=== PATIENT | female | born 2000 | race Caucasian/White ===

== ENCOUNTER 2025-10-22 10:11 | Outpatient (OUT) | payer BC, SELFPAY ==
--- OUTSIDE RECORDS SUMMARY | 2025-10-11 13:15 | XMS_ITS | Encounter Summary ---
Author Organization [facility] Address [address] [place] [address] Care Team Providers Care Hydrographic Engineer Name Role Phone Unavailable Primary Care Provider Unavailabl e Encounter Details DateTypeDepartmentCare Team (Latest Contact Info)Ibnbfetvzpd36/18/2025 1:15 PM [facility]outine [facility] [address] [place] [address] Marsha Marks, CNM [address] [place] [address] Encounter for care of first , third trimester ([facility]) (Primary Dx); Large for dates ([facility]) Social History Tobacco UseTypesPacks/DayYears UsedDateSmoking Tobacco: NeverSmokeless Tobacco: NeverAlcohol UseStandard Drinks/WeekCommentsNot Currently0 (1 standard drink = 0.6 oz pure alcohol)Estimated Date of TjjhnsjtDxydszguAiv72/28/2025Based on last menstrual period of 01/14/2025 (Exact Date)Sex and Gender Information ValueDate RecordedSex Assigned at BirthNot on fileLegal KotNwqsll53/06/2025 4:57 PM EDTGender IdentityNot on fileSexual OrientationNot on filedocumented as of this encounter Last Filed Vital Signs Vital SignReadingTime TakenCommentsBlood Qsevhckf659/80112/12/2024 1:32 PM EST Pulse--Temperature--Respiratory Rate--Oxygen Saturation--Inhaled Oxygen Concentration--Qfisvr581 kg (250 lb)10/11/2025 1:32 PM ESTHeight--Body Mass Index44.29003/16/2025 9:20 AM EDTdocumented in this encounter Progress Notes * Marsha Marks CNM - 10/11/2025 1:15 PM EST Subjective No chief complaint on file. Melissa Johnson is a 25 y.o. at 38w4d with a working estimated date of delivery of 10/21/2025, by Last Menstrual Period who presents for a routine visit. She denies vaginal bleeding, leakage of fluid, decreased movements, or contractions. OB History Para Term AB Living 1 SAB IAB Ectopic Multiple Live Births # Outcome Date GA Lbr Francisco/2nd Weight Sex Type Anes PTL Lv 1 Current Her is complicated by: MTHFER gene mutation Objective Physical Exam Weight: 250 lb Expected Total Weight Gain: 11 lb-19 lb Pregravid BMI: 38.27 BP: 122/80 Urine protein-negative Urine glucose-negative Assessment/Plan Diagnoses and all orders for this visit: Encounter for care of first , third trimester ([facility]) Large for dates ([facility]) - US OB follow up transabdominal approach; Future Continue vitamin. Labs reviewed. GBS negative Expected mode of delivery Follow up in 1 week for a routine visit. documented in this encounter Plan of Treatment DateTypeDepartmentCare Team (Latest Contact Info)Dxazazadlci69/29/2025 4:45 PM ESTAncillary Procedure [facility] [address] [facility] [address] [place] [address] 10/22/2025 6:30 PM ESTRoutine [facility] [address] [place] [address] Marsha Marks CNM [address] [place] [address] documented as of this encounter Results * US OB follow up transabdominal approach (10/11/2025 3:58 PM EST)Anatomical RegionLateralityModalityBodyUltrasoundSpecimen (Source)Anatomical Location / LateralityCollection Method / VolumeCollection TimeReceived Time10/13/2025 3:26 PM EST Impressions 10/15/2025 11:03 AM EST 1. Single, live intrauterine , current sonographic age of 38 weeks and 5 days, with an estimated date of delivery of October 20, 2025 2. Comparison made with prior examination August 13, 2025 had a weight percentile of 29.5% and delivery date of October 23, 2025. * ??Estimated Weight (g) by Percentile is based upon an accurate estimated age based onlast menstrual period. ?? TRANSCRIBED BY: ? ELECTRONICALLY SIGNED BY: Lopez Diaz MD Narrative 10/15/2025 11:03 AM EST FINDINGS: A single, live intrauterine is present with normal cardiac rate of 149 ??beats per minute. Normal activity and amniotic fluid volume of 13. ??Morphology is grossly normal. The cervix is long and closed,5.8 cm. ??The placenta is anterior, Grade 2 not associated with the cervical os. ??The current sonographic age is 38 weeks and 5 days, based on the following measurements: ?BPD ? 9.3 cm (38 weeks, 0 days) ?Head Circumference ?33.6cm (38 weeks, 4days) ?Abdominal Circumference ?35.7cm (39 weeks, 5 days) ?Femur Length ?7.5cm (38 weeks,4 ??days) ?Presentation ? Cephalic ?Placenta ? Anterior ? Weight (g) by Percentile ??76.1 % * These measurements result in an estimated date of delivery of ??October 20, 2025. ?? The current estimated weight is ??3666 ??grams ( 8 pound,1 ??ounces). ?? Procedure Note Lopez Diaz MD - 10/15/2025 FINDINGS: A single, live intrauterine is present with normal cardiacrate of 149 beats per minute. Normal activity and amniotic fluidvolume of 13. Morphology is grossly normal. The cervix is long andclosed,5.8 cm. The placenta is anterior, Grade 2 not associated with thecervical os. The current sonographic age is 38 weeks and 5 days, based onthe following measurements: BPD 9.3 cm (38 weeks, 0 days) Head Circumference 33.6cm (38 weeks, 4days) Abdominal Circumference 35.7cm (39 weeks, 5 days) Femur Length 7.5cm (38 weeks,4 days) Presentation Cephalic Placenta Anterior Weight (g) by Percentile 76.1 % * These measurements result in an estimated date of delivery of 2024. The current estimated weight is 3666 grams ( 8 pound,1ounces). IMPRESSION: 1. Single, live intrauterine , current sonographic age of 38weeks and 5 days, with an estimated date of delivery of September 2. Comparison made with prior examination August 13, 2025 had a fetalweight percentile of 29.5% and delivery date of October 23, 2025. * Estimated Weight (g) by Percentile is based upon an accurateestimated age based on last menstrual period. TRANSCRIBED BY: ELECTRONICALLY SIGNED BY: Lopez Diaz MD Authorizing ProviderResult TypeResult StatusValerilonny Rosen [facility] US PROCEDURESFinal Result documented in this encounter Visit Diagnoses Diagnosis Encounter for care of first , third trimester ([facility])- Primary Large for dates ([facility]) Large for dates ([facility]) documented in this encounter
--- OUTSIDE RECORDS SUMMARY | 2025-10-11 15:30 | XMS_ITS | Encounter Summary ---
Author Organization [facility] Address [address] [place] [address] Care Team Providers Care Supervisor Cytogenetic Laboratory Name Role Phone Unavailable Primary Care Provider Unavailabl e Encounter Details DateTypeDepartmentCare Team (Latest Contact Info)Astkhwirxhs31/18/2025 3:30 PM ESTAncillary Procedure [facility] [address] [facility] [address] [place] [address] Large for dates ([facility]) Social History Tobacco UseTypesPacks/DayYears UsedDateSmoking Tobacco: NeverSmokeless Tobacco: NeverAlcohol UseStandard Drinks/WeekCommentsNot Currently0 (1 standard drink = 0.6 oz pure alcohol)Estimated Date of NtvhbjtsKmnjzehtZrp67/28/2025Based on last menstrual period of 01/14/2025 (Exact Date)Sex and Gender Information ValueDate RecordedSex Assigned at BirthNot on fileLegal AtrApnixa58/06/2025 4:57 PM EDTGender IdentityNot on fileSexual OrientationNot on filedocumented as of this encounter Plan of Treatment DateTypeDepartmentCare Team (Latest Contact Info)Sfgtetnnymn42/29/2025 4:45 PM ESTAncillary Procedure [facility] [address] [facility] [address] [place] [address] 10/22/2025 6:30 PM ESTRoutine [facility] [address] [place] [address] Marsha Marks, CNM [address] [place], [place] [id number] documented as of this encounter Procedures Procedure NamePriorityDate/TimeAssociated DiagnosisCommentsUS OB FOLLOW UP TRANSABDOMINAL FGZNLKRYVbxhlku44/18/2025 3:58 PM EST Large for dates ([facility]) documented in this encounter Results * OB follow up transabdominal approach (10/11/2025 3:58 [...] BY: Lopez Diaz MD Authorizing ProviderResult TypeResult StatusValesabino Marks [facility] US PROCEDURESFinal Result documented in this encounter Visit Diagnoses Diagnosis Large for dates ([facility]) documented in this encounter
--- OUTSIDE RECORDS SUMMARY | 2025-10-17 11:15 | XMS_ITS | Encounter Summary ---
Author Organization [facility] Address [address] [place] [address] Care Team Providers Care Revenue Specialist Name Role Phone Unavailable Primary Care Provider Unavailabl e Encounter Details DateTypeDepartmentCare Team (Latest Contact Info)Kiqcsrlwwum40/24/2025 11:15 AM ESTRoutine [facility] [address] [place] [address] Marsha Marks, CNM [address] [place], [place] [id number] Social History Tobacco UseTypesPacks/DayYears UsedDateSmoking Tobacco: NeverSmokeless Tobacco: NeverAlcohol UseStandard Drinks/WeekCommentsNot Currently0 (1 standard drink = 0.6 oz pure alcohol)Estimated Date of UwtqmjjtIwlpvuhgXzu78/28/2025Based on last menstrual period of 01/14/2025 (Exact Date)Sex and Gender Information ValueDate RecordedSex Assigned at BirthNot on fileLegal HjkBodnrq74/06/2025 4:57 PM EDTGender IdentityNot on fileSexual OrientationNot on filedocumented as of this encounter Last Filed Vital Signs Vital SignReadingTime TakenCommentsBlood Hjbhnczw815/80112/18/2024 11:32 AM EST Pulse--Temperature--Respiratory Rate--Oxygen Saturation--Inhaled Oxygen Concentration--Ghrhzt131 kg (253 lb)10/17/2025 11:32 AM ESTHeight--Body Mass Index44.8203/16/2025 9:20 AM EDTdocumented in this encounter Plan of Treatment DateTypeDepartmentCare Team (Latest Contact Info)Tmhnlnufblv54/29/2025 4:45 PM ESTAncillary Procedure [facility] [address] [place] [address] 10/22/2025 6:30 PM ESTRoutine [facility] [address] [place] [address] Marsha Marks, KESHIA [address] [place] [address] documented as of this encounter Visit Diagnoses Not on filedocumented in this encounter
--- OUTSIDE RECORDS SUMMARY | 2025-10-22 10:18 | XMS_ITS | Encounter Summary ---
Author Organization [facility] Address [address] [place] [address] Care Team Providers Care Animal Control Supervisor Name Role Phone Unavailable Primary Care Provider Unavailabl e Encounter Details DateTypeDepartmentCare Team (Latest Contact Info)Zghjccikfiq78/18/2025Travel Social History Tobacco UseTypesPacks/DayYears UsedDateSmoking Tobacco: NeverSmokeless Tobacco: NeverAlcohol UseStandard Drinks/WeekCommentsNot Currently0 (1 standard drink = 0.6 oz pure alcohol)Estimated Date of IsehpzweLklmffrzRuk20/28/2025Based on last menstrual period of 01/14/2025 (Exact Date)Sex and Gender Information ValueDate RecordedSex Assigned at BirthNot on fileLegal BhzHeurhg96/06/2025 4:57 PM EDTGender IdentityNot on fileSexual OrientationNot on filedocumented as of this encounter Plan of Treatment DateTypeDepartmentCare Team (Latest Contact Info)Fvffbyblcej92/29/2025 4:45 PM ESTAncillary Procedure [facility] [address] [facility] [address] [place] [address] 10/22/2025 6:30 PM ESTRoutine [facility] [address] [place] [address] Marsha Marks, CNM [address] [place], [place] [id number] documented as of this encounter Visit Diagnoses Not on filedocumented in this encounter
--- OUTSIDE RECORDS SUMMARY | 2025-10-22 10:18 | XMS_ITS | Clinical Summary ---
Author Organization [facility] Address [address] [id number] Care Team Providers Care Fiber Optics Engineer Name Role Phone Unavailable Primary Care Provider Unavailabl e Social History Tobacco UseTypesPacks/DayYears UsedDateSmoking Tobacco: Never Assessed CommentsUnknownSex and Gender InformationValueDate RecordedSex Assigned at Not on fileLegal CyoEupuxq07/11/2020 9:26 AM ESTGender IdentityNot on fileSexual OrientationNot on file Plan of Treatment Not on file Insurance
--- OUTSIDE RECORDS SUMMARY | 2025-10-22 10:18 | XMS_ITS | Encounter Summary ---
Author Organization [facility] Address [address] [place] [address] Care Team Providers Care Carbon Brusher Assembler Name Role Phone Unavailable Primary Care Provider Unavailabl e Encounter Details DateTypeDepartmentCare Team (Latest Contact Info)Vojchadjjbl99/18/2025amboo flowsheet [facility] GONZALEZ [address] [place] [address] Marsha Marks CNM [address] [place] [address] Social History Tobacco UseTypesPacks/DayYears UsedDateSmoking Tobacco: NeverSmokeless Tobacco: NeverAlcohol UseStandard Drinks/WeekCommentsNot Currently0 (1 standard drink = 0.6 oz pure alcohol)Estimated Date of EgovuqbnNrdwphvvTfn11/28/2025Based on last menstrual period of 01/14/2025 (Exact Date)Sex and Gender Information ValueDate RecordedSex Assigned at BirthNot on fileLegal UvmDvcmdj87/06/2025 4:57 PM EDTGender IdentityNot on fileSexual OrientationNot on filedocumented as of this encounter Plan of Treatment DateTypeDepartmentCare Team (Latest Contact Info)Neiemvfgdaq16/29/2025 4:45 PM ESTAncillary Procedure [facility] [address] [address] 10/22/2025 6:30 PM ESTRoutine [facility] [address] [place] [address] Marsha Marks CNM [address] [facility] [place] [address] documented as of this encounter Visit Diagnoses Not on filedocumented in this encounter
--- OUTSIDE RECORDS SUMMARY | 2025-10-22 10:18 | XMS_ITS | Encounter Summary ---
Author Organization [facility] Address [address] [place] [address] Care Team Providers Care Coding Quality Coordinator Name Role Phone Unavailable Primary Care Provider Unavailabl e Encounter Details DateTypeDepartmentCare Team (Latest Contact Info)Hjhaaysvdhg72/26/2025Orders Only MAYDA GONZALEZ [address] [place] [address] Marsha Marks CNM [address] [place] [address] related condition in third trimester ([facility]) Social History Tobacco UseTypesPacks/DayYears UsedDateSmoking Tobacco: NeverSmokeless Tobacco: NeverAlcohol UseStandard Drinks/WeekCommentsNot Currently0 (1 standard drink = 0.6 oz pure alcohol)Estimated Date of GayxuiooAdipmwluQzm11/28/2025Based on last menstrual period of 01/14/2025 (Exact Date)Sex and Gender Information ValueDate RecordedSex Assigned at BirthNot on fileLegal HlyKhxptg86/06/2025 4:57 PM EDTGender IdentityNot on fileSexual OrientationNot on filedocumented as of this encounter Plan of Treatment DateTypeDepartmentCare Team (Latest Contact Info)Wbyxvgjoslx06/29/2025 4:45 PM ESTAncillary Procedure [facility] [address] [address] 10/22/2025 6:30 PM ESTRoutine [facility] [address] [place] [address] Marsha Marks CNM [address] [place] [address] NameTypePriorityAssociated DiagnosesOrder ScheduleUS OB follow up transabdominal approachImagingRoutine related condition in third trimester ([facility]) Expected: 10/19/2025, Expires: 10/19/2026documented as of this encounter Visit Diagnoses Diagnosis related condition in third trimester ([facility]) documented in this encounter
--- OUTSIDE RECORDS SUMMARY | 2025-10-22 10:19 | XMS_ITS | Clinical Summary ---
Author Organization [facility] Address [address] [place] [address] Care Team Providers Care Mechanical Engineering Professor Name Role Phone Unavailable Primary Care Provider Unavailabl e Allergies No known active allergies Medications MedicationSigDispense QuantityRefillsLast FilledStart DateEnd DateStatus albuterol (PROVENTIL HFA;VENTOLIN HFA) 90 mcg/actuation inhaler Inhale 2 puffs into the lungs every 6 (six) hours as needed.Active TRI-SPRINTEC, 28, 0.18/0.215/0.25 mg-35 mcg (28) tablet 08/03/2019Active Family History Medical HistoryRelationCommentsNo Known ProblemsFatherHypothyroidismMother RelationStatusCommentsFatherAliveMotherAlive Social History Tobacco UseTypesPacks/DayYears UsedDateSmoking Tobacco: NeverSmokeless Tobacco: NeverAlcohol UseStandard Drinks/WeekCommentsYes0 (1 standard drink = 0.6 oz pure alcohol)CommentsUnknownSex and Gender InformationValueDate RecordedSex Assigned at BirthNot on fileLegal UqaHzpjjr90/16/2019 12:49 PM EDTGender IdentityNot on fileSexual OrientationNot on file Last Filed Vital Signs Vital SignReadingTime TakenCommentsBlood Frwnqjrx114/8111 4:39 PM EST Uyjan6404 4:39 PM VVFKkumhzfennq94.8 ??C (98.2 ??F)08/31/2019 4:39 PM ESTRespiratory Gzwo642110/31/2018 4:39 PM ESTOxygen Ifmswsenke22%08/31/2019 4:39 PM ESTInhaled Oxygen Concentration--Yupbsg78.5 kg (184 lb)08/31/2019 4:39 PM EST Txyxhe755.6 cm (5' 4 )08/31/2019 4:39 PM ESTBody Mass Index31.5808/31/2019 4:39 PM EST Plan of Treatment Health MaintenanceDue DateLast DoneCommentsHepatitis B Vaccines (1 of 3 - 19+ 3- dose series)2017Pap Smear09/30/20192683Tjujfai-Icsoayueek-Hpykapvto Vaccines (7 - Td or Tdap), 05/16/2003, 05/28/2000, Additional history existsInfluenza Vaccine(s) (#1)06/25/2025Shingles Vaccine (Non-Medicare; Age 50+ or All Ages Risk Series) (1 of 2)2048RSV for patients and patients 60yrs or older (1 - 1-dose 75+ series)2073Hib VaccinesCompleted 11/13/1999, 04/07/1999, 02/14/1999, Additional history existsMeningococcal (MCV4) VaccinesAged OutNo longer eligible based on patient's age to complete this topicPneumococcal Vaccine (Pediatric Routine or All Ages Risk Series)Aged OutNo longer eligible based on patient's age to complete this topic Insurance
--- OUTSIDE RECORDS SUMMARY | 2025-10-22 10:19 | XMS_ITS | Encounter Summary ---
Author Organization [facility] Address [address] [place] [address] Care Team Providers Care Men'S And Boys' Clothing Salesperson Name Role Phone Unavailable Primary Care Provider Unavailabl e Encounter Details DateTypeDepartmentCare Team (Latest Contact Info)Mbvyrqtucfe38/24/2025amboo flowsheet MAYDA GONZALEZ [address] [place] [address] Marsha Marks CNM [address] [place] [address] Social History Tobacco UseTypesPacks/DayYears UsedDateSmoking Tobacco: NeverSmokeless Tobacco: NeverAlcohol UseStandard Drinks/WeekCommentsNot Currently0 (1 standard drink = 0.6 oz pure alcohol)Estimated Date of VoyywznbSkpwzyjoAod04/28/2025Based on last menstrual period of 01/14/2025 (Exact Date)Sex and Gender Information ValueDate RecordedSex Assigned at BirthNot on fileLegal VelLxucnj91/06/2025 4:57 PM EDTGender IdentityNot on fileSexual OrientationNot on filedocumented as of this encounter Plan of Treatment DateTypeDepartmentCare Team (Latest Contact Info)Lxnpxcqhwsq76/29/2025 4:45 PM ESTAncillary Procedure [facility] [address] [address] 10/22/2025 6:30 PM ESTRoutine [facility] [address] [place] [address] Marsha Marks CNM [address] [place] [address] documented as of this encounter Visit Diagnoses Not on filedocumented in this encounter
--- OUTSIDE RECORDS SUMMARY | 2025-10-22 10:19 | XMS_ITS | Clinical Summary ---
Author Organization [facility] Healthcare Address [address] [place] [address] Care Team Providers Care Marketing Communications Coordinator Name Role Phone Unavailable Primary Care Provider Unavailabl e Allergies No known active allergies Medications MedicationSigDispense QuantityRefillsLast FilledStart DateEnd DateStatus multivitamin () 27-0.8 MG tablet Indications: examination or test, positive result ([facility])Take 1 tablet by mouth Daily 30 tablet 1105Active magnesium oxide (Mag-Ox) 400 mg tablet 400 mg DailyActive ferrous sulfate (Fe Tabs) 325 (65 Fe) MG EC tablet Indications:Anemia during in third trimester ([facility])Take 1 tablet (325 mg) by mouth in the morning and 1 tablet (325 mg) before bedtime. Do not crush, chew, or split. 60 tablet [id number] Encounters DateTypeDepartmentCare OpwwAlasmxbrjdz47/26/2025Orders Only MAYDA GONZALEZ [address] [place] [address] Marsha Marks CNM related condition in third trimester ([facility])10/17/2025 11:15 AM EST Routine MAYDA GONZALEZ [address] [place] [address] Marsha Marks CNM 10/17/2025amboo flowsheet MAYDA GONZALEZ [address] [place] [address] Marsha Marks CNM 10/11/2025 3:30 PM ESTAncillary Procedure [facility] [address] [place] [address] Large for dates ([facility])10/11/2025 1:15 PM ESTRoutine [facility] [address] [place] [address] Marsha Marks CNM Encounter for care of first , third trimester ([facility]) (Primary Dx); Large for dates ([facility])10/11/2025[facility] flowsheet [facility] [address] [facility] [phone] Marsha Marks CNM 10/11/20259314Cumerv97/11/2025 4:45 PM ESTRoutine [facility] [address] [facility] [phone] Marsha Marks CNM Encounter for care of first , third trimester ([facility]) (Primary Dx)10/04/2025[facility] flowsheet [facility] [address] [facility] [phone] Marsha Marks CNM 10/03/2025Results Follow-Up [facility] [address] [facility] [phone] Antionette Lindquist MA STREPTOCCOUS, GROUP B HGLYPHY6809/26/2025 4:15 PM ESTRoutine [facility] [address] [facility] [address] Marsha Marks CNM screening for streptococcus B ([facility])09/26/2025[facility] flowsheet [facility] [address] [place] [address] Marsha Marks CNM 09/12/2025Telephone [facility] [address] [place] [phone] Marsha Marks CNM 09/03/2025 5:30 PM ESTRoutine MAYDA RODASGYN [address] [place] [phone] Marsha Marks CNM Encounter for care of first , third trimester ([facility]) (Primary Dx)09/03/2025amboo flowsheet [facility] [address] [place] [phone] Marsha Marks CNM 09/03/20250311Iaxnun50/31/2025Results Follow-Up MAYDA RODASGYN [address] [place] [phone] Antionette Lindquist MA CBC, GLUCOSE, GESTATIONAL SCREEN (50G)-135 ZDIQMP0408/13/2025 5:30 PM EDTAncillary Procedure [facility] [address] [address] related condition in third trimester ([facility])08/13/2025Orders Only [facility] [address] [place] [phone] Marsha Marks CNM Anemia during in third trimester ([facility]) (Primary Dx)08/13/2025 Myilpk6308/09/2025 9:30 AM EDTRoutine [facility] [address] [place] [phone] Marsha Marks CNM Screening for iron deficiency anemia; Screening for diabetes mellitus (DM); related condition in third trimester ([facility])08/09/2025amboo flowsheet [facility] [address] [place] [phone] Marsha Marks CNM 08/03/2025Orders Only [facility] [address] [place] [phone] Marsha Marks CNM Screening for diabetes mellitus (DM); Screening for iron deficiency anemiafrom Last 3 Months Family History Medical HistoryRelationNameCommentsHashimoto's thyroiditisMotherRelationName StatusCommentsFatherAliveMotherAlive Social History Tobacco UseTypesPacks/DayYears UsedDateSmoking Tobacco: NeverSmokeless Tobacco: Never Tobacco Cessation:Counseling Given: Not Answered Alcohol UseStandard Drinks/WeekCommentsNot Currently0 (1 standard drink = 0.6 oz pure alcohol)Estimated Date of AndabprmEkmdybivFpb07/28/2025Based on last menstrual period of 01/14/2025 (Exact Date)Sex and Gender InformationValue Date RecordedSex Assigned at BirthNot on fileLegal JorXkdxms29/06/2025 4:57 PM EDTGender IdentityNot on fileSexual OrientationNot on file Last Filed Vital Signs Vital SignReadingTime TakenCommentsBlood Uuldajug183/80112/18/2024 11:32 AM EST Pulse--Temperature--Respiratory Rate--Oxygen Saturation--Inhaled Oxygen Concentration--Jiedlk127 kg (253 lb)10/17/2025 11:32 AM HPZEzocpt096 cm (5' 3 ) 03/16/2025 9:20 AM EDTBody Mass Index44.8203/16/2025 9:20 AM EDT Plan of Treatment DateTypeDepartmentCare Team (Latest Contact Info)Yqlcjoypgzw10/29/2025 4:45 PM ESTAncillary Procedure [facility] [address] [address] 10/22/2025 6:30 PM ESTRoutine [facility] [address] [place] [address] Marsha Marks CNM [address] [place] [address] Health MaintenanceDue DateLast DoneCommentsInfluenza Vaccine (#1)06/25/2025 09/04/2005Pneumococcal Vaccine: Pediatrics (0 to 5 Years) and At-Risk Patients (6 to 64 Years)Aged OutNo longer eligible based on patient's age to complete this topic Procedures Procedure NamePriorityDate/TimeAssociated DiagnosisCommentsUS OB FOLLOW UP TRANSABDOMINAL MIDGDCRWNatnwng94/18/2025 3:58 PM EST Large for dates ([facility]) STREPTOCCOUS, GROUP B QQGZRCYWlsdktj25/04/2025 8:17 AM EST screening for streptococcus B ([facility]) US OB FOLLOW UP TRANSABDOMINAL OKTDOLBPNruacpt87/20/2025 5:51 PM EDT related condition in third trimester ([facility]) GLUCOSE, GESTATIONAL SCREEN (50G)-135 ITOGAOCamzgem91/16/2025 9:55 AM EDT Screening for diabetes mellitus (DM) KSYZlbanki21/16/2025 9:55 AM EDT Screening for iron deficiency anemia from Last 3 Months Results * US OB follow up transabdominal approach (10/11/2025 3:58 PM EST) Only the most recent of2 resultswithin the time period is included. Anatomical RegionLateralityModalityBodyUltrasoundSpecimen (Source)Anatomical Location / LateralityCollection Method / VolumeCollection TimeReceived Time 10/13/2025 3:26 PM EST Impressions 10/15/2025 11:03 AM [...] BY: Lopez Diaz MD Authorizing ProviderResult TypeResult StatusMarsha PENAMIMG OB US PROCEDURESFinal Result * STREPTOCCOUS, GROUP B CULTURE (09/27/2025 8:17 AM EST)ComponentValueRef Range Test MethodAnalysis TimePerformed AtPathologist SignatureMICRO [id number] QUESTSPECIMEN QUALITYAdequateQUESTSOURCEVAGINAL/ANORECTALQUESTSTATUSFINALQUEST RESULTSEE NOTEQUESTComment: No group B Streptococcus isolated COMMENTSEE NOTEQUESTComment: Note per CDC guidelines optimal recovery is achieved by swabbing both the lower vagina and rectum (through the anal sphincter). Specimen (Source)Anatomical Location / LateralityCollection Method / Volume Collection TimeReceived Time09/27/2025 8:17 AM EST09/27/2025 8:18 AM EST Narrative Resulting Agency Comment Performing Organization Information ?Site ID: QPT ?Name: [facility] [address] ?Address: [address] [place] [phone] ?Director: Leeroy Nash MD Authorizing ProviderResult TypeResult Delphine Marks CNMLAB BODY FLUIDS AND STOOLS ORDERABLESFinal ResultPerforming OrganizationAddressCity/State/ZIP CodePhone Number [facility] * GLUCOSE, GESTATIONAL SCREEN (50G)-135 CUTOFF (08/09/2025 9:55 AM EDT)Component ValueRef RangeTest MethodAnalysis TimePerformed AtPathologist Signature GLUCOSE, GESTATIONAL SCREEN (50G)-135 PJATVW128<135 mg/dLQUESTSpecimen (Source)Anatomical Location / LateralityCollection Method / VolumeCollection TimeReceived Time08/09/2025 9:55 AM EDT1 9:55 AM EDT Narrative Resulting Agency Comment Performing Organization Information ?Site ID: QPT ?Name: [facility] [address] ?Address: [facility] [address] [place] [address] ?Director: Leeroy Nash MD Authorizing ProviderResult TypeResult StatusMarsha Marks CNMLAB BLOOD ORDERABLESFinal ResultPerforming OrganizationAddressCity/State/ZIP CodePhone Number [facility] * (ABNORMAL) CBC (08/09/2025 9:55 AM EDT)ComponentValueRef RangeTest Method Analysis TimePerformed AtPathologist SignatureWHITE BLOOD CELL COUNT8.93.8 - 10.8 Thousand/uLQUESTRED BLOOD CELL COUNT3.79(L)3.80 - 5.10 Million/uLQUEST GZKVIHRSNM39.7(L)11.7 - 15.5 g/pIOIDUJPXBENICUWU80.8(L)35.0 - 45.0 %QUESTMCV 89.280.0 - 100.0 qWUUSNYLYJ46.227.0 - 33.0 uwUBLZZTSVH07.7(L)32.0 - 36.0 g/dL QUESTComment: For adults, a slight decrease in the calculated MCHC value (in the range of 30 to 32 g/dL) is most likely not clinically significant; however, it should be interpreted with caution in correlation with other red cell parameters and the patient's clinical condition. RDW13.311.0 - 15.0 %QUESTPLATELET NNDSY593288 - 400 Thousand/bULDTLRYPB10.47.5 - 12.5 fLQUESTSpecimen (Source)Anatomical Location / LateralityCollection Method / VolumeCollection TimeReceived TimeBloodVenous blood specimen / Jdzclzi1208/09/2025 9:55 AM EDT1 9:55 AM EDT Narrative Resulting Agency Comment Performing Organization Information ?Site ID: QPT ?Name: [facility] [address] ?Address: [facility] , [address] [place] [phone] ?Director: Leeroy Nash MD Authorizing ProviderResult TypeResult StatusValerilonny Marks CNMLAB BLOOD ORDERABLESFinal ResultPerforming OrganizationAddressCity/State/ZIP CodePhone Number [facility] from Last 3 Months Insurance
--- OUTSIDE RECORDS SUMMARY | 2025-10-22 10:19 | XMS_ITS | Clinical Summary ---
Author Organization [employer] Address [id number] [address] [place] [address] Care Team Providers Care Accounts Adjustable Clerk Name Role Phone PeñamehreensandraOneida perezgalina Wilson APRN-PRODUCTION CONTROL SPECIALIST Primary Care Pr ovider Allergies No known active allergies Medications MedicationSigDispense QuantityRefillsLast FilledStart DateEnd DateStatus mupirocin (BACTROBAN) 2 % cream APPLY SPARINGLY TO AFFECTED AREA 3 TIMES A DAY FOR 10 FBFC950Active permethrin (ELIMITE) 5 % cream APPLY FROM THE CHIN DOWN LEAVE ON 8-10 HOURS THEN NLTCWV497Active albuterol (PROVENTIL HFA;VENTOLIN HFA) 90 mcg/actuation inhaler Indications:Acute bronchitis, unspecified organismInhale 2 puffs every 6 (six) hours as needed for shortness of breath. 18 g 08/03/2019Active Additional Information Patient not taking.Reported on 06/05/2025 benzonatate (TESSALON) 200 mg capsule Indications:Acute bronchitis, unspecified organismTake 1 capsule (200 mg total) by mouth 3 (three) times a day as needed for cough. 20 capsule 08/03/2019Active Additional Information Patient not taking.Reported on 06/05/2025 wt356-mgsn-wlmep acid ( MULTI) 27-800 mg-mcg tablet Take by mouth.Active magnesium oxide (MAGOX) 400 mg tablet Take 1 tablet (400 mg total) by mouth in the morning.Active aspirin 81 mg Take 1 tablet (81 mg total) by mouth in the morning.Active Active Problems ProblemNoted DateDiagnosed DateMTHFR ejwksvnk91/12/2025Obesity affecting in second gbpbvxuaz32/12/2025Estimated Date of Delivery IstmqivcSum63/28/2025Based on last menstrual period of 01/14/2025 (Exact Date) Immunizations ImmunizationAdministration DatesNext RhaPUzM0505/16/2003,05/28/2000,04/07/1999, 02/14/1999,1998Hepatitis B012/02/1998HiB11/13/1999,04/07/1999,02/14/1999, 1998IPV05/16/2003,11/13/1999,02/14/1999,1998MMR05/16/2003,11/13/1999 Meningococcal Kdnylxjxs99/27/2013Pneumococcal Xxiezvqbn23/15/0302Zxqg66/25/2011 Kzrtxykqb89/20/2000 Family History Medical HistoryRelationNameCommentsCancerMaternal Grandmotherbreast cancerOther Maternal Grandmotheraddiction issuesHashimoto's thyroiditisMotherMTHFRMother CancerPaternal Grandfatherstomach, esophagus, prostateCancerPaternal Grandmother skinDiabetesPaternal GrandmotherHypertensionPaternal GrandmotherThyroid Issues Paternal GrandmotherRelationNameStatusCommentsFatherAliveMaternal Grandmother MotherAlivePaternal GrandfatherPaternal Grandmother Social History Tobacco UseTypesPacks/DayYears UsedDateSmoking Tobacco: NeverSmokeless Tobacco: NeverAlcohol UseStandard Drinks/WeekCommentsNot Currently0 (1 standard drink = 0.6 oz pure alcohol)sociallyChildcareAnswerDate RecordedChildcareUnknown 04/03/2019EmploymentAnswerDate WzpoqlawZmoojetohzHblvlmx71/10/2019Hunger ScreeningAnswerDate RecordedWithin the past 12 months we worried whether our food would run out before we got money to buy more.Never True06/05/2025Within the past 12 months the food we bought just didn't last and we didn't have money to get more.Never True06/05/2025Purpose - LifeAnswerDate RecordedPurpose and direction in vrbbLoulvtz56/10/2021Estimated Date of DeliveryCommentsYes 5Based on last menstrual period of 01/14/2025 (Exact Date)Sex and Gender InformationValueDate RecordedSex Assigned at BirthNot on fileLegal SexFemale 05/28/2015 3:18 PM EDTGender IdentityNot on fileSexual OrientationNot on file Last Filed Vital Signs Vital SignReadingTime TakenCommentsBlood Frwtknby460/6408 7:55 AM EDT Ethxh063106/05/2025 7:55 AM UCNDwguynlugzk83.8 ??C (98.3 ??F)08/03/2019 11:54 AM EDTRespiratory Khny6978 11:54 AM EDTOxygen Dvkknsuabk223%08/03/2019 11:54 AM EDTInhaled Oxygen Concentration--Iyqnkb647.4 kg (221 lb 6.4 oz) 06/05/2025 7:55 AM PFIXytnil997 cm (5' 3 )06/05/2025 7:55 AM EDTBody Mass Index 39.22006/05/2025 7:55 AM EDT Plan of Treatment Health MaintenanceDue DateLast DoneCommentsDepression Enghcjdez41/07/2010dult BMI Follow Up Plan2016Pap Smear2019DTaP,Tdap and Td Vaccines (7 - Td or Tdap), 05/16/2003, 05/28/2000, Additional history exists COVID-19 Vaccine ( season)/12/2020, 07/22/2021Influenza Gjzpfhs57/08/2005Adult BMI Seqipwsar62Tobacco Qbilqudao01RSV ( or age 60+ yrs) (No Doses Required) Completed Medical Devices Not on file Insurance Care Teams Team MemberRelationshipSpecialtyStart DateEnd Date Della Rowell, ELECTRIC RAZOR MECHANIC-PRODUCTION CONTROL SPECIALIST [address] [place] [address] PCP - GeneralNurse Practitioner04/20/25
[2025-10-22 10:35] VITALS: BP 126/71; PULSE 90
[2025-10-22 11:50] LABS: Glucose Urine UA NEGATIVE (NEGATIVE)
[2025-10-22 12:00] LABS: Cast Seen? NONE SEEN #/LPF (NONE SEEN); Crystals Seen? None Seen #/HPF (None Seen); Urine Culture Indicated YES-FRMC
--- NOTE | 2025-10-22 12:07 | US_ITS ---
The [address] [address] Patient Name: ROBERTO MUELLER MRN: [id number] date: 2000 Sex: F Assigned Patient Location: [facility] Current Patient Location: [facility] Accession/Order Number: [id number] Exam Date: 10/22/2025 12:10 Report Date: 10/22/2025 13:12 At the request of: ROXY DAVIS APRN CNYared Procedure: US OB growth CLINICAL DATA: Post dates ULTRASOUND OB GROWTH COMPARISON: None There is a single live intrauterine gestation in cephalic presentation. There is cardiac and somatic activity with heart rate of 140 bpm. The amniotic fluid volume measures 12.8 cm which is in normal range. The elevator runner noted a hydrocele. The following measurements were obtained: Biparietal diameter 9.6 cm 39 weeks 1 day Head circumference 35.6 cm 41 weeks 4 days Abdominal circumference 30.3 cm out of range Femur length 7.8 cm 40 weeks 0 days The composite ultrasound age based on these measurements is 40 weeks 2 days +/- 2 weeks 6 days. The estimated weight is 9 lbs. 10 oz. +/- 1 lb. 7 oz. (93%). US/US OB growth IMPRESSION: SINGLE LIVE INTRAUTERINE GESTATION WITH ULTRASOUND AGE OF 40 WEEKS 2 DAYS INCIDENTAL SCROTAL HYDROCELE. BIOPHYSICAL PROFILE: COMPARISON: None FINDINGS: TONE: 1 or more episodes of activity extension and flexion of extremity or opening and closing of the hand [Y] 2/2 GROSS BODY MOVEMENTS: 3 or more discrete body or limb movements [Y] 2/2 BREATHING MOVEMENTS: 1 or more episodes of breathing lasting at least 30 seconds [Y] 2/2 ESME: A single deepest vertical pocket of amniotic fluid greater than 2 cm [Y] 2/2 ESME: 12.8 cm Total score: 8/8 IMPRESSION: NORMAL BIOPHYSICAL PROFILE Impression dictated by: Shell Black M.D. 10/22/2025 1:12 PM Dictation Location: [employer] Electronically authenticated by: [id number] Y Date: 10/22/2025 13:12
--- NOTE | 2025-10-22 12:07 | US_ITS ---
The [address] [address] Patient Name: ROBERTO MUELLER MRN: [id number] date: 2000 Sex: F Assigned Patient Location: [facility] Current Patient Location: [facility] Accession/Order Number: [id number] Exam Date: 10/22/2025 12:10 Report Date: 10/22/2025 13:12 At the request of: ROXY DAVIS APRN CNYared Procedure: US OB growth CLINICAL DATA: Post dates ULTRASOUND OB GROWTH COMPARISON: None There is a single live intrauterine gestation in cephalic presentation. There is cardiac and somatic activity with heart rate of 140 bpm. The amniotic fluid volume measures 12.8 cm which is in normal range. The lamps tester and inspector noted a hydrocele. The following measurements were obtained: Biparietal diameter 9.6 cm 39 weeks 1 day Head circumference 35.6 cm 41 weeks 4 days Abdominal circumference 30.3 cm out of range Femur length 7.8 cm 40 weeks 0 days The composite ultrasound age based on these measurements is 40 weeks 2 days +/- 2 weeks 6 days. The estimated weight is 9 lbs. 10 oz. +/- 1 lb. 7 oz. (93%). US/US OB BPP w non-stress IMPRESSION: SINGLE LIVE INTRAUTERINE GESTATION WITH ULTRASOUND AGE OF 40 WEEKS 2 DAYS INCIDENTAL SCROTAL HYDROCELE. BIOPHYSICAL PROFILE: COMPARISON: None FINDINGS: TONE: 1 or more episodes of activity extension and flexion of extremity or opening and closing of the hand [Y] 2/2 GROSS BODY MOVEMENTS: 3 or more discrete body or limb movements [Y] 2/2 BREATHING MOVEMENTS: 1 or more episodes of breathing lasting at least 30 seconds [Y] 2/2 ESME: A single deepest vertical pocket of amniotic fluid greater than 2 cm [Y] 2/2 ESME: 12.8 cm Total score: 8/8 IMPRESSION: NORMAL BIOPHYSICAL PROFILE Impression dictated by: Shell Black M.D. 10/22/2025 1:12 PM Dictation Location: [facility]ITALSpreetales Electronically authenticated by: [id number] Y Date: 10/22/2025 13:12
== END 2025-10-22 14:30 | disposition home or self-care (01) ==
LOC: FBCO 10:15 → FBC 10:23
PROVIDERS: Visit Provider Midwife
DX: O26.893 Other specified pregnancy related conditions, third trimester (principal); O48.0 Post-term pregnancy; Z3A.40 40 weeks gestation of pregnancy; O42.92 Full-term premature rupture of membranes, unspecified as to length of time between rupture and onset of labor
CPT/HCPCS: 59025; 76816; 76818; 81001; 84112; 87086